=== PATIENT | male | born 1950 | race African-American/Black ===

== ENCOUNTER 2018-05-19 16:55 | Emergency (ER) | payer MEDICAID, OTHER ==
[~2018-05-19] VITALS: Ht 177.8 cm; Wt 100.0 kg
[2018-05-19 17:02] VITALS: BP 101/65
== END 2018-05-19 20:20 | disposition left against medical advice (07) ==
LOC: ER 17:28
DX: Z53.21 Procedure and treatment not carried out due to patient leaving prior to being seen by health care provider (principal)